=== PATIENT | female | born 1950 | race Two or more races ===

== ENCOUNTER 2022-03-27 23:34 | Inpatient (IN) | payer OTHER ==
[~2022-03-27] VITALS: Ht 165.1 cm; Wt 62.1 kg
[2022-03-28 00:19] LABS: BASOPHILS % 0.4 % (0.0-2.0); EOSINOPHILS % 1.1 % (0.0-5.0); HEMATOCRIT. 30.2 % (36.0-48.0); HEMOGLOBIN. 10.1 g/dL (12.0-16.0); LYMPHOCYTES % 41.2 % (20.0-50.0); MEAN CORPUSCULAR HEMOGLOBIN 27.8 pg (28.0-32.0); MEAN CORPUSCULAR VOLUME 83.3 fL (81.0-99.0); MEAN PLATELET VOLUME 7.9 fl (7.4-10.4); MONOCYTES % 12.8 % (2.0-8.0); NEUTROPHILS % 44.5 % (40.0-76.0); PLATELET 317 x1000/uL (130-400); RED BLOOD CELL COUNT 3.62 mill/uL (4.2-5.4)
[2022-03-28 00:23] LABS: CHLORIDE 108 mEq/L (98-107)
[2022-03-28] MEDS ORDERED: IOHEXOL-350 100 ML BOTTLE ONE (10:27)
[2022-03-28 12:15] VITALS: BP 163/66
[2022-03-28] MEDS ORDERED: CLONIDINE 0.1MG TABLET PO PRN (13:00)
[2022-03-28] MEDS ORDERED: ONDANSETRON HCL 4MG/2ML INJ IV PRN (13:00)
[2022-03-28] MEDS ORDERED: ACETAMINOPHEN 325MG TABLET PO PRN ×2 (13:00)
[2022-03-28] MEDS ORDERED: LORAZEPAM 0.5MG TABLET PO PRN (13:00)
[2022-03-28] MEDS ORDERED: ZOLPIDEM TARTRATE 5MG TABLET PO PRN (13:00)
[2022-03-28] MEDS ORDERED: DEXTROSE 50% WATER 50ML SYRINGE IV PRN (13:00)
[2022-03-28] MEDS ORDERED: DIPHENHYDRAMINE 50MG/ML VIAL IV PRN (13:00)
[2022-03-28] MEDS: INSULIN LISPRO 100 UNITS/ML SUBCUT SCH ×3 (13:10→21:00)
[2022-03-28] MEDS ORDERED: CLOP-31 MT (13:28)
[2022-03-28] MEDS ORDERED: ATOR80TA MT (13:28)
[2022-03-28] MEDS ORDERED: GLIP5TAB12 PO (13:28)
[2022-03-28] MEDS ORDERED: LISI20TA31 MT (13:28)
[2022-03-28] MEDS ORDERED: ASPI-1406 MT (13:28)
[2022-03-28] MEDS ORDERED: ENOXAPARIN 40MG/0.4ML SYR SUBCUT SCH (15:00)
[2022-03-28 15:30] VITALS: BP 163/66
[2022-03-28 16:00] VITALS: BP 161/70
[2022-03-28 16:56] LABS: BG BASE EXCESS -1.8 mmol/L (-2.0-2.0); BG CARBOXYHEMOGLOBIN 0.2 % (0.5-1.5); BG DEOXYHEMOGLOBIN 2.5 % (0.0-5.0); BG HCO3 ACT 20.1 mmol/L (22.0-26.0); BG METHEMOGLOBIN 0.1 % (0.0-1.5); BG OXYGEN SATURATION 97.5 % (92.0-98.5); BG OXYHEMOGLOBIN 97.2 % (94.0-97.0); BG PCO2 25.8 mmHg (35.0-45.0); BG SAMPLE SITE RIGHT RADIAL; BG TOTAL HEMOGLOBIN 10.6 g/dL (12.0-18.0); BG VENT MODE ROOM AIR
[2022-03-28] MEDS: SODIUM CHLORIDE 0.9% INJ 3ML FLUSH IVF SCH ×2 (17:00→21:28)
[2022-03-28] MEDS: BLOOD SUGAR DIAGNOSTIC STRIP TEST SCH ×2 (17:45→21:29)
[2022-03-28] MEDS: PROMETHAZINE/DEXTROMETHORPHAN 6.25-15MG/5ML BOTTLE 120ML PO PRN (18:33)
[2022-03-28 20:00] VITALS: BP 134/71
[2022-03-28] MEDS: AMLODIPINE 5MG TABLET PO SCH (21:28)
[2022-03-29] VITALS: BP 149/77
[2022-03-29 04:00] VITALS: BP 150/80
[2022-03-29] MEDS: BLOOD SUGAR DIAGNOSTIC STRIP TEST SCH ×2 (06:00→12:40)
[2022-03-29] MEDS: SODIUM CHLORIDE 0.9% INJ 3ML FLUSH IVF SCH (06:00)
[2022-03-29] MEDS: INSULIN LISPRO 100 UNITS/ML SUBCUT SCH ×2 (06:00→13:10)
[2022-03-29 08:00] VITALS: BP 131/48
[2022-03-29] MEDS: AMLODIPINE 5MG TABLET PO SCH (08:49)
[2022-03-29] MEDS: PROMETHAZINE/DEXTROMETHORPHAN 6.25-15MG/5ML BOTTLE 120ML PO PRN (09:45)
[2022-03-29 14:12] VITALS: BP 131/48
== END 2022-03-29 13:13 | disposition home or self-care (01) | DRG 178 ==
LOC: ER 23:34 → 7WST 03-28 03:20 → ENRESERV 03-28 09:33
PROVIDERS: ADMIT Internal Medicine; ATTEND Internal Medicine
DX: U07.1 COVID-19 (principal); I69.354 Hemiplegia and hemiparesis following cerebral infarction affecting left non-dominant side; E11.9 Type 2 diabetes mellitus without complications; I10 Essential (primary) hypertension; Z90.710 Acquired absence of both cervix and uterus
CPT/HCPCS: 36415; 36600; 71045; 71275; 80053; 82375; 82805; 82962; 83036; 83605; 83880; 84484; 85025; 85379; 87426; 93005; 99285; C9803; J1650; Q9967

== ENCOUNTER 2022-10-17 19:13 | Emergency (ER) | payer MEDICARE, OTHER ==
[~2022-10-17] VITALS: Ht 162.6 cm; Wt 66.2 kg
[~2022-10-17 19:13] MED LIST: ASPI-1406 MT; ATOR80TA MT; CLOP-31 MT; GLIP5TAB12 PO; LISI20TA31 MT
[2022-10-17] MEDS ORDERED: KETOROLAC 30MG/ML VIAL IM ONE (22:15)
[2022-10-17] MEDS ORDERED: ACETAMINOPHEN 325MG TABLET PO ONE (22:15)
[2022-10-17 22:26] VITALS: BP 134/72
[2022-10-17 22:36] LABS: CLARITY URINE CLOUDY (CLEAR); COLOR URINE DARK YELLOW (YELLOW); KETONES URINE TRACE (NEGATIVE); LEUKOCYTE ESTERASE URINE 3+ (NEGATIVE); NITRITE URINE POSITIVE (NEGATIVE); OCCULT BLOOD URINE 3+ (NEGATIVE); PH URINE 7.5 (4.5-8.0); PROTEIN URINE 3+ (NEGATIVE); SPECIFIC GRAVITY URINE 1.014 (1.005-1.030)
[2022-10-17] MEDS ORDERED: OXYCODONE HCL/ACETAMINOPHEN 5/325MG TABLET PO ONE (22:45)
== END 2022-10-17 22:50 | disposition home or self-care (01) ==
LOC: ER 21:03
DX: R30.0 Dysuria (principal); N39.0 Urinary tract infection, site not specified; E11.9 Type 2 diabetes mellitus without complications; I10 Essential (primary) hypertension; I69.354 Hemiplegia and hemiparesis following cerebral infarction affecting left non-dominant side; Z88.6 Allergy status to analgesic agent; Z79.82 Long term (current) use of aspirin; Z87.442 Personal history of urinary calculi; Z98.890 Other specified postprocedural states
CPT/HCPCS: 81003; 87086; 99283; C1893; J1885